=== PATIENT | female | born 1955 | race Caucasian/White ===

== ENCOUNTER 2018-09-14 14:07 | Emergency (ER) | payer OTHER ==
[2018-09-14 14:24] VITALS: BP 124/65
--- NOTE | 2018-09-14 14:32 | UC ---
Bite Injury/Animal HPI - HPI Summary HPI Summary: 63-year-old female presents with Bite to her right hand. States she was trying to pet her friend's cat when it bit her. States the wounds bled a little and she immediately washed the wounds and applied antibiotic ointment. The cat's vaccinations are up to date. Patient is unsure of last tetanus. Denies fever, chills, erythema, edema, joint pain, decreased range of motion, numbness, or tingling. - History of Current Complaint Chief Complaint: UCBiteInjury Stated Complaint: CAT BITE Time Seen by Provider: 09/14/18 14:24 Hx Obtained From: Patient Pain Intensity: 3 - Allergies/Home Medications Allergies/Adverse Reactions: Allergies Allergy/AdvReac Type Severity Reaction Status Date / Time No Known Allergies Allergy Verified 09/14/18 14:21 PMH/Surg Hx/FS Hx/Imm Hx Previously Healthy: Yes - Denies significnat PMH - Surgical History Surgical History: None - Family History Known Family History: Positive: Non-Contributory - Social History Occupation: Student Lives: With Family Alcohol Use: Occasionally Substance Use Type: None Smoking Status (MU): Never Smoked Tobacco Review of Systems All Other Systems Reviewed And Are Negative: Yes Constitutional: Negative: Fever, Chills Skin: Positive: Other - See HPI Respiratory: Positive: Negative Cardiovascular: Positive: Negative Gastrointestinal: Positive: Negative Genitourinary: Positive: Negative Motor: Negative: Weakness Neurovascular: Negative: Decreased Sensation Musculoskeletal: Negative: Arthralgia, Decreased ROM Neurological: Positive: Negative Is Patient Immunocompromised?: No Physical Exam - Summary Physical Exam Summary: GENERAL APPEARANCE: Well developed, well nourished, alert and cooperative, and appears to be in no acute distress. CARDIAC: Normal S1 and S2. No S3, S4 or murmurs. Rhythm is regular. There is no peripheral edema, cyanosis or pallor. Extremities are warm and well perfused. Capillary refill is less than 2 seconds. Peripheral pulses intact. LUNGS: Clear to auscultation without rales, rhonchi, wheezing or diminished breath sounds. ABDOMEN: Positive bowel sounds. Soft, nondistended, nontender. No guarding or rebound. No masses or hepatosplenomegally. MUSKULOSKELETAL: ROM intact to all extremities. No joint erythema or tenderness. Normal muscular development. Normal gait. SKIN: 2 small puncture wounds noted over the thenar eminence at the base of the right thumb without erythema, edema, or drainage. Triage Information Reviewed: Yes Vital Signs: Initial Vital Signs Temp 98.2 F 09/14/18 14:18 Pulse 70 09/14/18 14:18 Resp 17 09/14/18 14:18 BP 124/65 09/14/18 14:18 Pulse Ox 100 09/14/18 14:18 Vital Signs Reviewed: Yes Images Hands: 1 - Puncture wound 2 - Puncture wound Bite Injury Course/Dx - Course Course Of Treatment: 63-year-old female presents with Bite to her right hand. States she was trying to pet her friend's cat when it bit her. States the wounds bled a little and she immediately washed the wounds and applied antibiotic ointment. The cat's vaccinations are up to date. Patient is unsure of last tetanus. Denies fever, chills, erythema, edema, joint pain, decreased range of motion, numbness, or tingling. Afebrile. Vital signs stable. Patient had 2 small puncture wounds over the thenar eminence at the base of her right thumb without erythema, edema , or drainage. Her tetanus was updated. I'm recommending that she start Augmentin 875 mg twice a day 5 days for infection prophylaxis. Anticipatory guidance and warning symptoms were reviewed with the patient. Verbalizes understanding and agrees with plan of care. - Differential Dx/Diagnosis Differential Diagnosis/HQI/PQRI: Puncture, Rabies Exposure Provider Diagnosis: Cat bite of right hand Discharge - Sign-Out/Discharge Documenting (check all that apply): Patient Departure All imaging exams completed and their final reports reviewed: No Studies - Discharge Plan Condition: Stable Disposition: HOME Prescriptions: Amoxicillin/Clavulanate TAB* [Augmentin TAB 875*] 875 mg PO BID #10 tab Patient Education Materials: Animal Bite (ED) Referrals: No Primary Care Phys,NOPCP [Primary Care Provider] - Additional Instructions: You sustained some puncture wounds from the cat bite that do not require any repair. We will start you on Augmentin 875 mg 1 tab twice a day for 5 days to help prevent an infection. Be sure to keep the wounds clean with a mild soap and water. You may apply an antibiotic ointment and cover with a gauze dressing. Your tetanus (Tdap) was updated today. Be sure to notify your primary care provider so that they can update their records. Take acetaminophen (Tylenol) or ibuprofen (Advil, Motrinaccording to directions as needed for pain. Seek immediate medical attention in the emergency room if you develop a fever greater than 100.5 F, has severe pain that is not managed with acetaminophen or ibuprofen, you have redness that spreads, red streaking up the arm, swelling of the hand or fingers, pus draining from the wound, or any worsening of symptoms. - Billing Disposition and Condition Condition: STABLE Disposition: Home
[2018-09-14] MEDS ORDERED: Tetan/Diph/Pertus SYR(Tdap)* 0.5 ML SYR(BOOSTRIX) use SYR IM ONE (14:39)
== END 2018-09-14 15:00 | disposition home or self-care (01) ==
LOC: UCEAST 14:07
DX: S61.451A Open bite of right hand, initial encounter (principal); W55.01XA Bitten by cat, initial encounter; Y93.89 Activity, other specified; Y92.9 Unspecified place or not applicable
CPT/HCPCS: 90471; 90715; 99202; G0463